=== PATIENT | male | born 1955 | race Caucasian/White ===

== ENCOUNTER 2020-12-09 21:46 | Observation (INO) | payer OTHER ==
[~2020-12-09] VITALS: Ht 190.5 cm; Wt 101.1 kg
[2020-12-09] MEDS ORDERED: ASPIRIN CHEWABLE 81 MG TABLET. PO ONE (22:00)
[2020-12-09 22:14] LABS: BASO # 0.1 x10^3/uL (0.0-0.2); BASO % 1 % (0-3); EOS # 0.1 x10^3/uL (0.0-0.7); EOS % 1 % (0-3); HEMATOCRIT 42.9 % (39.0-53.0); HEMOGLOBIN 14.4 g/dL (13.0-17.5); LYMPH # 1.6 x10^3/uL (1.0-4.8); LYMPH % 12 % (24-48); MEAN CORPUSCULAR HEMOGLOBIN 31 pg (25-35); MEAN CORPUSCULAR HGB CONC 34 g/dL (31-37); MEAN CORPUSCULAR VOLUME 93 fL (79-100); MONO # 0.9 x10^3/uL (0.0-1.1); MONO % 7 % (0-9); NEUT # 10.7 x10^3uL (1.8-7.7); NEUT % 80 % (31-73); PLATELET COUNT 296 x10^3/uL (140-400); RED BLOOD COUNT 4.62 x10^6/uL (4.30-5.70); RED CELL DISTRIBUTION WIDTH 13.7 % (11.5-14.5); WHITE BLOOD COUNT 13.3 x10^3/uL (4.0-11.0)
--- NOTE | 2020-12-09 22:19 | PHYS DOC ---
Past History Past Medical History: No Pertinent History Past Surgical History: Other Additional Past Surgical Histo: TITANIUM FELICIA LLE, ABX PEG LFT SHOULDER Alcohol Use: Occasionally General Adult EDM: Chief Complaint: CHEST PAIN HPI: HPI: 65-year-old male presents with central chest pain. He rates it a 7 out of 10. It is a heavy pressure feeling. It started around 1:30 PM. It woke patient from sleep. He thought was heartburn so he took 3 different rounds of heartburn medication. This did not give him any relief. He has no cardiac history. She had a stress test many years ago. It was fine at that time. He denies shortness of breath or diaphoresis. He has no other complaints at this time. Review of Systems: Review of Systems: Constitutional: Denies fever or chills Eyes: Denies change in visual acuity HENT: Denies nasal congestion or sore throat Respiratory: Denies cough or shortness of breath Cardiovascular: Denies chest pain or edema GI: Denies abdominal pain, nausea, vomiting, bloody stools or diarrhea : Denies dysuria Musculoskeletal: Denies back pain or joint pain Integument: Denies rash Neurologic: Denies headache, focal weakness or sensory changes Endocrine: Denies polyuria or polydipsia Lymphatic: Denies swollen glands Psychiatric: Denies depression or anxiety Current Medications: Current Meds: Current Medications Medications (Trade) Dose Ordered Sig/Mamadou Start Time Stop Time Status Last Admin Dose Admin Aspirin (Aspirin Chewable) 324 mg 1X ONCE 12/09/20 22:00 12/09/20 22:08 DC 12/09/20 22:07 324 MG Allergies: Allergies: Allergies Coded Allergies Type Severity Reaction Last Updated Verified acetaminophen Allergy Unknown Hives 12/09/20 Yes hydrocodone Allergy Unknown Hives 12/09/20 Yes Physical Exam: PE: Constitutional: Well developed, well nourished, no acute distress, non-toxic appearance. [] HENT: Normocephalic, atraumatic, bilateral external ears normal, oropharynx moist, no oral exudates, nose normal. [] Eyes: PERRLA, EOMI, conjunctiva normal, no discharge. [] Neck: Normal range of motion, no tenderness, supple, no stridor. [] Cardiovascular:Heart rate regular rhythm, no murmur [] Lungs & Thorax: Bilateral breath sounds clear to auscultation [] Abdomen: Bowel sounds normal, soft, no tenderness, no masses, no pulsatile masses. [] Skin: Warm, dry, no erythema, no rash. [] Back: No tenderness, no CVA tenderness. [] Extremities: No tenderness, no cyanosis, no clubbing, ROM intact, no edema. [] Neurologic: Alert and oriented X 3, normal motor function, normal sensory function, no focal deficits noted. [] Psychologic: Affect normal, judgement normal, mood normal. [] Current Patient Data: Labs: Laboratory Tests Test 12/09/20 21:59 White Blood Count 13.3 x10^3/uL (4.0-11.0) H Red Blood Count 4.62 x10^6/uL (4.30-5.70) Hemoglobin 14.4 g/dL (13.0-17.5) Hematocrit 42.9 % (39.0-53.0) Mean Corpuscular Volume 93 fL (79-100) Mean Corpuscular Hemoglobin 31 pg (25-35) Mean Corpuscular Hemoglobin Concent 34 g/dL (31-37) Red Cell Distribution Width 13.7 % (11.5-14.5) Platelet Count 296 x10^3/uL (140-400) Neutrophils (%) (Auto) 80 % (31-73) H Lymphocytes (%) (Auto) 12 % (24-48) L Monocytes (%) (Auto) 7 % (0-9) Eosinophils (%) (Auto) 1 % (0-3) Basophils (%) (Auto) 1 % (0-3) Neutrophils # (Auto) 10.7 x10^3uL (1.8-7.7) H Lymphocytes # (Auto) 1.6 x10^3/uL (1.0-4.8) Monocytes # (Auto) 0.9 x10^3/uL (0.0-1.1) Eosinophils # (Auto) 0.1 x10^3/uL (0.0-0.7) Basophils # (Auto) 0.1 x10^3/uL (0.0-0.2) Vital Signs: Vital Signs Date Time Temp Pulse Resp B/P (MAP) Pulse Ox O2 Delivery O2 Flow Rate FiO2 12/09/20 21:46 98.4 62 16 158/91 (113) 96 Room Air EKG: EKG: Sinus rhythm, rate 60, leftward axis, left bundle branch block, no obvious ST elevations or depressions. [] Radiology/Procedures: Radiology/Procedures: [] Impressions: Exam: Chest one view INDICATION: Chest pain TECHNIQUE: Frontal view of the chest Comparisons: None FINDINGS: The cardiomediastinal silhouette and pulmonary vessels are within normal limits. The lung and pleural spaces are clear. IMPRESSION: No acute cardiopulmonary process. Electronically signed by: Yi Hatfield MD (12/09/2020 11:17 PM) [facility] DICTATED AND SIGNED BY: YI HATFIELD MD DATE: 12/09/202315 CC: GEORGE WILLIAMSON DO; STEVEN BLANKENSHIP SC ~MTH0 0 Heart Score: C/O Chest Pain: Yes HEART Score for Chest Pain: HEART Score for Chest Pain Response (Comments) Value History Moderately Suspicious 1 ECG Nonspecific Repolarizatio 1 Age >45 - < 65 1 Risk Factors 1 or 2 Risk Factors 1 Total 4 Risk Factors: Risk Factors: DM, Current or recent (<one month) smoker, HTN, HLP, family history of CAD, obesity. Risk Scores: Score 0 - 3: 2.5% MACE over next 6 weeks - Discharge Home Score 4 - 6: 20.3% MACE over next 6 weeks - Admit for Clinical Observation Score 7 - 10: 72.7% MACE over next 6 weeks - Early Invasive Strategies Course & Med Decision Making: Course & Med Decision Making Pertinent Labs and Imaging studies reviewed. (See chart for details) The patient's labs are unremarkable. Troponin is negative. Chest x-ray is negative for acute findings. The EKG is significant only for left bundle branch block. The patient's heart score is a 4. He continues to have pain. We will try nitroglycerin sublingual. I spoke with the patient about admission for further testing and observation. Patient is in agreement with this plan. I spoke with Dr. Quigley and he has accepted the patient for admission. [] Dragon Disclaimer: Dragon Disclaimer: This electronic medical record was generated, in whole or in part, using a voice recognition dictation system. Departure Departure: Impression: Primary Impression: Chest pain Disposition: ADMITTED INPATIENT Admitting Physician: Dann, Ahmed Condition: STABLE Referrals: STEVEN BLANKENSHIP (PCP) GEORGE WILLIAMSON DO Dec 09, 2020 22:19
--- NOTE | 2020-12-09 22:22 | EKG ---
[address] [address] Test Date: 2020-12-09 Test Time: 21:53:15 Pat Name: KIERAN STEELE Department: Room: Gender: M Admitting Clerk: : [id number] Requested By: GEORGE WILLIAMSON Order Number: [id number] Reading MD: Measurements Intervals [place] Rate: 60 P: 42 DC: 160 QRS: -22 QRSD: 154 T: 97 QT: 454 QTc: 454 Interpretive Statements SINUS RHYTHM LEFTWARD AXIS LEFT BUNDLE BRANCH BLOCK ABNORMAL ECG RI6.02 No previous ECG available for comparison
[2020-12-09 22:24] LABS: CALCIUM 9.7 mg/dL (8.5-10.1); GFR 75.2; POTASSIUM 4.1 mmol/L (3.5-5.1)
[2020-12-09 22:30] LABS: ALBUMIN 3.8 g/dL (3.4-5.0); TOTAL BILIRUBIN 0.3 mg/dL (0.2-1.0); TOTAL PROTEIN 7.8 g/dL (6.4-8.2)
[2020-12-09] MEDS ORDERED: NITROGLYCERIN SUBLINGUAL 0.4 MG BOTTLE OF 25. SL PRN (22:30)
--- NOTE | 2020-12-09 23:19 | RAD ---
Exam: Chest one view INDICATION: Chest pain TECHNIQUE: Frontal view of the chest Comparisons: None FINDINGS: The cardiomediastinal silhouette and pulmonary vessels are within normal limits. The lung and pleural spaces are clear. IMPRESSION: No acute cardiopulmonary process. Electronically signed by: Yi Gray MD (12/09/2020 11:17 PM) SARAH
[2020-12-10] MEDS ORDERED: NITROGLYCERIN SUBLINGUAL 0.4 MG BOTTLE OF 25. SL PRN (00:30)
[2020-12-10] MEDS ORDERED: ONDANSETRON PF 4 MG/2 ML VIAL. IVP PRN (00:30)
[2020-12-10] MEDS: MORPHINE SULFATE 2 MG/ML DISP.SYRIN. IVP PRN ×4 (00:57→07:39)
[2020-12-10 01:51] VITALS: BP 113/71
[2020-12-10 05:45] VITALS: BP 126/75
--- NOTE | 2020-12-10 08:33 | PDOC2 ---
CARDIAC CONSULT DATE OF CONSULT DOS: DATE: 12/10/20 TIME: 08:31 REASON FOR CONSULT Reason for Consult Chest pain REFERRING PHYSICIAN Referring Physician Dr. Quigley SOURCE Source: Chart review, Patient HPI History of Present Illness This is a 65 yo male who presented secondary to epigastric and abdominal pain. Pain began yesterday afternoon. Describes as pressure. Abdomen is tender to touch. Associated with nausea. No dizziness, diaphoresis, or SOA. No prior h/o CAD. EKG noted with LBBB. No previous EKG or cardiac workup. Troponin negative x3. PAST MEDICAL HISTORY Cardiovascular: No pertinent hx Pulmonary: No pertinent hx GI: No pertinent hx Heme/Onc: No pertinent hx Renal/: No pertinent hx PAST SURGICAL HISTORY Past Surgical History: Other (adi in left leg) FAMILY HISTORY Family History: Other (valvular heart disease ) SOCIAL HISTORY Smoke: No ALCOHOL: none Drugs: None Lives: Alone CURRENT MEDICATIONS Current Medications Current Medications Aspirin (Aspirin Chewable) 324 mg 1X ONCE PO Last administered on 12/09/20at 22:07; Start 12/09/20 at 22:00; Stop 12/09/20 at 22:08; Status DC Nitroglycerin (Nitrostat) 0.4 mg PRN Q5MIN PRN SL CHEST PAIN Last administered on 12/10/20at 00:21; Start 12/09/20 at 22:30; Stop 12/10/20 at 00:27; Status DC Ondansetron HCl (Zofran) 4 mg PRN Q4HRS PRN IVP NAUSEA/VOMITING 1ST CHOICE Last administered on 12/10/20at 07:39; Start 12/10/20 at 00:30; Stop 12/11/20 at 00:29 Morphine Sulfate (Morphine 2mg Syringe) 2 mg PRN Q2HR PRN IVP SEVERE PAIN 7-10 Last administered on 12/10/20at 07:39; Start 12/10/20 at 00:30; Stop 12/11/20 at 00:29 Nitroglycerin (Nitrostat) 0.4 mg PRN Q5MIN PRN SL CHEST PAIN; Start 12/10/20 at 00:30; Stop 12/11/20 at 00:29 ALLERGIES Allergies: Coded Allergies: acetaminophen (Verified Allergy, Unknown, Hives, 12/09/20) hydrocodone (Verified Allergy, Unknown, Hives, 12/09/20) ROS Review of Systems 14 point ROS conducted with pertinent positives noted above in hPI PHYSICAL EXAM General: Alert, Oriented X3, Cooperative, No acute distress HEENT: Atraumatic Lungs: Clear to auscultation Heart: Regular rate Abdomen: Soft, Other (diffuse tenderness ) Extremities: No edema, Normal pulses Neuro: Normal speech, Sensation intact Psych/Mental Status: Mental status NL, Mood NL MUSCULOSKELETAL: Osteoarthritic changes both hands VITALS Vital Signs Vital Signs Date Time Temp Pulse Resp B/P (MAP) Pulse Ox O2 Delivery O2 Flow Rate FiO2 12/10/20 07:39 20 Room Air 12/10/20 06:11 93 12/10/20 05:45 98.3 55 126/75 (92) LABS LABS Laboratory Tests Test 12/09/20 21:59 12/10/20 00:54 12/10/20 06:25 White Blood Count 13.3 x10^3/uL (4.0-11.0) Red Blood Count 4.62 x10^6/uL (4.30-5.70) Hemoglobin 14.4 g/dL (13.0-17.5) Hematocrit 42.9 % (39.0-53.0) Mean Corpuscular Volume 93 fL (79-100) Mean Corpuscular Hemoglobin 31 pg (25-35) Mean Corpuscular Hemoglobin Concent 34 g/dL (31-37) Red Cell Distribution Width 13.7 % (11.5-14.5) Platelet Count 296 x10^3/uL (140-400) Neutrophils (%) (Auto) 80 % (31-73) Lymphocytes (%) (Auto) 12 % (24-48) Monocytes (%) (Auto) 7 % (0-9) Eosinophils (%) (Auto) 1 % (0-3) Basophils (%) (Auto) 1 % (0-3) Neutrophils # (Auto) 10.7 x10^3uL (1.8-7.7) Lymphocytes # (Auto) 1.6 x10^3/uL (1.0-4.8) Monocytes # (Auto) 0.9 x10^3/uL (0.0-1.1) Eosinophils # (Auto) 0.1 x10^3/uL (0.0-0.7) Basophils # (Auto) 0.1 x10^3/uL (0.0-0.2) Sodium Level 141 mmol/L (136-145) Potassium Level 4.1 mmol/L (3.5-5.1) Chloride Level 104 mmol/L (98-107) Carbon Dioxide Level 28 mmol/L (21-32) Anion Gap 9 (6-14) Blood Urea Nitrogen 16 mg/dL (8-26) Creatinine 1.0 mg/dL (0.7-1.3) Estimated GFR (Cockcroft-Gault) 75.2 BUN/Creatinine Ratio 16 (6-20) Glucose Level 129 mg/dL (70-99) Calcium Level 9.7 mg/dL (8.5-10.1) Total Bilirubin 0.3 mg/dL (0.2-1.0) Aspartate Amino Transf (AST/SGOT) 19 U/L (15-37) Alanine Aminotransferase (ALT/SGPT) 35 U/L (16-63) Alkaline Phosphatase 68 U/L (46-116) Troponin I Quantitative < 0.017 ng/mL (0-0.055) < 0.017 ng/mL (0-0.055) < 0.017 ng/mL (0-0.055) Total Protein 7.8 g/dL (6.4-8.2) Albumin 3.8 g/dL (3.4-5.0) Albumin/Globulin Ratio 1.0 (1.0-1.7) ASSESSMENT/PLAN Assessment/Plan 1. Chest, epigastric pain; atypical. AMI ruled out 2. Abdominal pain 3. Leukocytosis 3. LBBB no previous EKG or cardiac workup Recommendations Lipids Will arranged outpatient ischemic evaluation given abnormal EKG Follow up in our office with Dr. Luther as scheduled. RICHELLE WALLACE APRN Dec 10, 2020 08:33
[2020-12-10] MEDS ORDERED: LIDO:MAALOX 1:1 20 ML SINGLE DOSE. PO ONE (10:15)
--- NOTE | 2020-12-10 12:35 | HP ---
ATTENDING PHYSICIAN: Dr. Steve. CHIEF COMPLAINT: Epigastric pain. HISTORY OF PRESENT ILLNESS: The patient is a 65-year-old gentleman who has known history of gastroesophageal reflux disease. He started having central chest pain which is more epigastric in nature. It awoke him from sleep at about 1:30 in the morning. He has been taking Celebrex. He thought his heartburn did not go away. He is also nauseated. He was evaluated in the ED. Cardiac enzymes initially were negative. He was brought in for further treatment and evaluation and cardiology consultation. PAST MEDICAL HISTORY: Significant for arthritis of the left shoulder. He has had a previous titanium adi infection and antibiotic beads. He also had some mild degenerative arthritis and psoriasis involving his extensor surfaces. ALLERGIES: He has allergies to TYLENOL, HYDROCODONE, causes a rash. MEDICATIONS: Celebrex daily. SOCIAL HISTORY: He is a nonsmoker, nondrinker. He moved up here several years ago. He is currently employed at [employer]. No recent COVID exposure travels. FAMILY HISTORY: Noncontributory. REVIEW OF SYSTEMS: Significant for localized chest pain. No alcohol, tobacco, caffeine use. All other systems were reviewed and turned to be negative. PHYSICAL EXAMINATION: GENERAL: When I saw him this is a pleasant middle-aged gentleman. VITAL SIGNS: Showed a blood pressure 126/75 mmHg, pulse is 55 and regular, oxygen saturation 95% on room air and his temperature was 98.3 degrees Fahrenheit. HEENT: Head is without trauma. Pupils are reactive. Sclerae are nonicteric. The oropharynx is clear. NECK: Supple. No bruits identified. LUNGS: Otherwise clear. CARDIOVASCULAR: Showed regular heart tones. ABDOMEN: Minimal guarding, no rebound tenderness. Bowel sounds are normoactive. There are no masses palpated. EXTREMITIES: Showed no cyanosis. NEUROLOGIC: Focally intact. Speech is fluent. SKIN: Warm and dry. PERTINENT LABORATORY STUDIES: The hemoglobin is 14.4 g/dL with a white count of 13,300. Electrolytes all within normal range. Transaminases normal. First set of cardiac enzymes negative for coronary ischemia. The EKG shows a left bundle-branch block, no acute changes identified. No old ECG for comparison. The chest x-ray is otherwise clear without any active disease process. ASSESSMENT: 1. This 65-year-old gentleman who has atypical epigastric pain. It is noncardiac in nature. 2. Probable NSAID gastritis related to Celebrex. 3. Degenerative arthritis, left shoulder. 4. History of psoriasis. PLAN: 1. Observation status. 2. Serial enzymes. 3. Stop Celebrex. 4. I have started Nexium. 5. Serial enzymes. 6. Cardiology consultation has already been done from the ED last night. ROGERS/VICKY/REENA DR: Mary TID: [id number] CC:
--- NOTE | 2020-12-10 20:51 | DS ---
DATE OF DISCHARGE: 12/10/2020 ATTENDING PHYSICIAN: Dr. Steve FINAL DISCHARGE DIAGNOSES: 1. Atypical chest pain, coronary ischemia ruled out. 2. Nonsteroidal anti-inflammatory drug gastritis due to Celebrex. 3. Degenerative arthritis, left shoulder. 4. Psoriasis. HISTORY AND PHYSICAL ILLNESS: This is a pleasant 65-year-old gentleman who has been taking longstanding Celebrex over a year for degenerative arthritis involving the left shoulder. He had epigastric pain and nausea and he was admitted for further treatment and evaluation, cardiac enzymes and cardiology consultation. PHYSICAL EXAMINATION: Please see my dictated note. PERTINENT LABORATORY AND X-RAY STUDIES: CBC was normal. Electrolytes within normal range. Three sets of cardiac enzymes negative for coronary ischemia. Chest x-ray was clear. EKG showed a left bundle branch block, sinus rhythm, no acute changes identified. COURSE IN THE HOSPITAL: The patient was admitted. Serial enzymes are drawn. Reassurance. Stop the Celebrex, put him on Nexium b.i.d., in addition for the pain I recommended some Percodan. He supposedly HAS ALLERGIES TO HYDROCODONE AND ACETAMINOPHEN. I encouraged him to get a bottle of antacid liquid Mylanta to have at the bedside. The patient was reassured. He was sent home in stable condition with assistance regarding followup care with Vinay Cotter. Nexium, no more Celebrex. ROGERS/SHANNA DR: Mary TID: [id number] CC: CATRINA MARIN
== END 2020-12-10 11:20 | disposition home or self-care (01) ==
LOC: ER 21:46 → INTOOBSV 12-10 00:45 → 1 SOUTH 12-10 00:45
PROVIDERS: ADMIT Internal Medicine; ATTEND Internal Medicine
DX: R07.89 Other chest pain (principal); R10.13 Epigastric pain; K29.70 Gastritis, unspecified, without bleeding; I44.7 Left bundle-branch block, unspecified; D72.829 Elevated white blood cell count, unspecified; L40.9 Psoriasis, unspecified; M19.012 Primary osteoarthritis, left shoulder; Z79.82 Long term (current) use of aspirin
CPT/HCPCS: 36415; 71045; 80053; 80061; 84484; 85025; 93005; 96374; 96375; 96376; 99285; G0378; J2270; J2405; G0379